=== PATIENT | male | born 1980 | race American Indian/Alaskan Native ===

== ENCOUNTER 2018-10-16 19:13 | Emergency (ER) | payer SELFPAY ==
[2018-10-16 19:47] LABS: Basophils # (Auto) 0.1 K/mm3 (0.0-0.1); Basophils % (Auto) 0.3 % (0.0-1.8); Hematocrit 49.7 % (35.5-45.6); Hemoglobin 16.4 gm/dl (11.8-15.2); Lymphocytes # (Auto) 1.7 K/mm3 (1.2-5.4); Mean Corpuscular HGB Conc 33 % (32-34); Mean Corpuscular Volume 87 fl (84-94); Monocytes # (Auto) 1.9 K/mm3 (0.0-0.8); Monocytes % (Auto) 9.8 % (0.0-7.3); Platelet Count 332 K/mm3 (140-440); Red Blood Count 5.69 M/mm3 (3.65-5.03); Red Cell Distribution Width 15.6 % (13.2-15.2)
[2018-10-16 20:02] LABS: Albumin 4.8 g/dL (3.9-5); Calcium 10.1 mg/dL (8.4-10.2)
[2018-10-16] MEDS ORDERED: NACL 0.9% 1000 ML 1,000 ML IV ONE ×2 (20:08)
--- NOTE | 2018-10-16 20:38 | Emergency Department Report ---
ED General Adult HPI - General Chief complaint: Nausea/Vomiting/Diarrhea Stated complaint: HEAT EXHAUST Time Seen by Provider: 10/16/18 20:07 Source: patient, EMS Mode of arrival: Stretcher Limitations: No Limitations - History of Present Illness Initial comments: Mr. Hamilton is a 40-year-old healthy male who presents with body aches malaise. He works as a car detalier. He drinks water sporadically. He developed vomiting. He has subjective fever or chills. He has body aches. No cough. No sick contacts. -: Gradual, This afternoon Location: left, right, upper extremity, lower extremity Severity scale (0 -10): 6 Quality: aching Consistency: constant Improves with: rest Worsens with: movement Associated Symptoms: malaise, nausea/vomiting - Related Data Allergies Allergy/AdvReac Type Severity Reaction Status Date / Time No Known Allergies Allergy Unverified 10/16/18 19:18 ED Review of Systems ROS: Stated complaint: HEAT EXHAUST Other details as noted in HPI Comment: All other systems reviewed and negative Constitutional: chills, fever, malaise Gastrointestinal: nausea, vomiting ED Past Medical Hx - Past Medical History Previous Medical History?: No - Surgical History Past Surgical History?: Yes Hx Appendectomy: Yes (2003) - Social History Smoking Status: Never Smoker ED Physical Exam - General Limitations: No Limitations General appearance: alert, in no apparent distress - Head Head exam: Present: atraumatic, normocephalic - Eye Eye exam: Present: normal appearance - ENT ENT exam: Present: mucous membranes moist - Neck Neck exam: Present: normal inspection, full ROM - Respiratory Respiratory exam: Present: normal lung sounds bilaterally. Absent: respiratory distress, wheezes, rales, rhonchi - Cardiovascular Cardiovascular Exam: Present: regular rate, normal rhythm, normal heart sounds. Absent: systolic murmur, diastolic murmur, rubs, gallop - GI/Abdominal GI/Abdominal exam: Present: soft, normal bowel sounds. Absent: distended, tenderness, guarding, rebound - Rectal Rectal exam: Present: deferred - Extremities Exam Extremities exam: Present: normal inspection - Back Exam Back exam: Present: normal inspection - Neurological Exam Neurological exam: Present: alert, oriented X3 - Psychiatric Psychiatric exam: Present: normal affect, normal mood - Skin Skin exam: Present: warm, dry, intact, normal color. Absent: rash ED Course Vital Signs 10/16/18 19:18 Temperature 98.8 F Pulse Rate 89 Respiratory 20 Rate Blood Pressure 130/78 O2 Sat by Pulse 98 Oximetry ED Medical Decision Making - Lab Data Result diagrams: 10/16/18 19:33 10/16/18 19:33 - EKG Data 10/16/18 20:47 EKG obtained 1947 Normal sinus rhythm rate 80 beats a minute normal axis normal intervals no ST-T signs of ischemia poor R-wave progression in the anterior leads - Medical Decision Making Mr. Hamilton is a healthy gentleman who presents with body aches. Labs notable for leukocytosis 19 K, Metabolic acidosis revealing volume contraction. Mildly elevated CK. I highly suspect heat exhaustion as well as dehydration. However will obtain blood cultures to rule out bacteremia. Hypovolemic hyponatremia noted. Elevated creatinine. Symptoms improved after 2 L IV fluid. Discharged home with instructions to c ontinue oral hydration. Critical care attestation.: If time is entered above; I have spent that time in minutes in the direct care of this critically ill patient, excluding procedure time. ED Disposition Clinical Impression: Dehydration, Heat exhaustion Disposition: DC-01 TO HOME OR SELFCARE Is pt being admited?: No Does the pt Need Aspirin: No Condition: Stable Instructions: Dehydration (ED), Heat Exhaustion (ED) Referrals: [facility] [Outside] - 3-5 Days
[2018-10-16 21:18] LABS: Bilirubin,Urine NEG (Negative); Blood,Urine NEG (Negative); Color,Urine Yellow (Yellow); Hyaline Casts,Urine 6 /LPF; Mucus,Urine 1+ /HPF; Urobilinogen,Urine < 2.0 mg/dL (<2.0)
[2018-10-16 23:13] VITALS: BP 148/78
== END 2018-10-16 22:30 | disposition home or self-care (01) ==
LOC: ED 19:13
DX: T67.5XXA Heat exhaustion, unspecified, initial encounter (principal); E86.0 Dehydration; Z90.49 Acquired absence of other specified parts of digestive tract; X58.XXXA Exposure to other specified factors, initial encounter; Y93.9 Activity, unspecified; Y92.89 Other specified places as the place of occurrence of the external cause; Y99.9 Unspecified external cause status
CPT/HCPCS: 36415; 80053; 81001; 82550; 85025; 87040; 93005; 93010; 96360; 96361; 99284; J7030